=== PATIENT | female | born 1970 | race Caucasian/White ===

== ENCOUNTER 2017-02-05 21:04 | Inpatient (IN) | payer OTHER ==
[2017-02-05] MEDS ORDERED: Aspirin Low Dose CHEW TAB* 81 MG PO ONE (22:11)
[2017-02-05] MEDS ORDERED: Pantoprazole IV* 40 MG IV ONE (22:12)
[2017-02-05] MEDS ORDERED: Sucralfate TAB* 1 GM PO ONE (22:12)
[2017-02-05 22:33] LABS: Hematocrit 18 % (35-47); Mean Corpuscular HGB Conc 29 g/dl (31-36); Mean Corpuscular Hemoglobin 16 pg (27-31); Mean Corpuscular Volume 54 fL (80-97); Mean Platelet Volume 8 um3 (7.4-10.4); Red Blood Count 3.37 10^6/ul (4.0-5.4); Red Cell Distribution Width 21 % (10.5-15); White Blood Count 10.4 10^3/ul (3.5-10.8)
[2017-02-05 22:34] LABS: Comments Flag Yes
[2017-02-05 22:41] LABS: Hemoglobin 5.3 g/dl (12.0-16.0)
[2017-02-05 22:50] LABS: ALT 8 U/L (7-52); AST 11 U/L (13-39); Albumin 4.2 g/dL (3.2-5.2); Alkaline Phosphatase 33 U/L (34-104); Anion Gap 8 mmol/L (2-11); BUN/Creatinine Ratio 17.7 (8-20); Blood Urea Nitrogen 14 mg/dL (6-24); CO2 Carbon Dioxide 23 mmol/L (22-32); Calcium 9.4 mg/dL (8.6-10.3); Chloride 104 mmol/L (101-111); EGFR African American 99.9 (>60); EGFR Non-African American 77.7 (>60); Globulin 2.8 g/dL (2-4); Glucose 102 mg/dL (70-100); Potassium 3.9 mmol/L (3.5-5.0); Sodium 135 mmol/L (133-145)
[2017-02-05 22:52] LABS: Add Diff/Slide Review? Manual Diff Added
[2017-02-05 23:06] LABS: Microcytosis 3+; Neutrophil % 83 % (38-83)
[2017-02-05 23:07] LABS: Add Path Review? YES; Hypochromasia 1+; Target Cells 1+
--- NOTE | 2017-02-06 00:12 | ED ---
Indu Whitman Emily, scribed for Ezequiel Suarez MD on 02/05/17 at 2217 . HPI Chest Pain - HPI Summary HPI Summary: This patient is a 47 year old F presenting to [facility] with a chief complaint of mid sternal CP that began at 1600. Pt reports pain starting while she was resting and sitting down. The patient rates the pain 8/10 in severity. Symptoms aggravated by deep breaths and burping. Symptoms alleviated by nothing. Patient denies feeling unable to catch her breath. Symptoms not aggravated my movement or palpation. PMHx includes GERD. Pt denies having similar CP due to GERD. - History of Current Complaint Chief Complaint: EDChestPainROMI Time Seen by Provider: 02/05/17 22:02 Hx Obtained From: Patient Onset/Duration: Started Hours Ago Timing: Constant, Lasting Hours Initial Severity: Severe Current Severity: Severe Pain Intensity: 8 Pain Scale Used: 0-10 Numeric Chest Pain Location: Discrete at:, Mid Sternal Aggravating Factor(s): Other: - Deep breaths and burping Alleviating Factor(s): Nothing - Allergy/Home Medications Allergies/Adverse Reactions: Allergies Allergy/AdvReac Type Severity Reaction Status Date / Time Penicillins Allergy Hives Verified 02/05/17 21:08 Home Medications: Home Medications Omeprazole 40 mg PO DAILY 02/05/17 [History Confirmed 02/05/17] PMH/Surg Hx/FS Hx/Imm Hx Previously Healthy: Yes GI History: Reports: Hx Gastroesophageal Reflux Disease Opthamlomology History: Denies: Hx Legally Blind EENT History: Denies: Hx Deafness Infectious Disease History: No Infectious Disease History: Denies: Traveled Outside the [place] in Last 30 Days - Family History Known Family History: Negative: Cardiac Disease, Diabetes - Social History Lives: Alone Substance Use Type: Reports: Marijuana Hx Tobacco Use: Yes Smoking Status (MU): Former Smoker Review of Systems Negative: Fever Positive: Chest Pain All Other Systems Reviewed And Are Negative: Yes Physical Exam Triage Information Reviewed: Yes Vital Signs On Initial Exam: Initial Vitals Temp Pulse Resp BP Pulse Ox 99.2 F 96 14 150/79 99 02/05/17 21:05 02/05/17 21:05 02/05/17 21:05 02/05/17 21:05 02/05/17 21:05 Vital Signs Reviewed: Yes Appearance: Positive: Well-Appearing, No Pain Distress Skin: Positive: Warm, Skin Color Reflects Adequate Perfusion, Dry Head/Face: Positive: Normal Head/Face Inspection Eyes: Positive: Normal ENT: Positive: Normal ENT inspection Neck: Positive: Supple, Nontender Respiratory/Lung Sounds: Positive: Clear to Auscultation, Breath Sounds Present Cardiovascular: Positive: RRR Abdomen Description: Positive: Nontender, Soft Bowel Sounds: Positive: Present Musculoskeletal: Positive: Normal Neurological: Positive: Normal Psychiatric: Positive: Affect/Mood Appropriate Diagnostics - Vital Signs Vital Signs Temp Pulse Resp BP Pulse Ox 02/05/17 21:05 99.2 F 96 14 150/79 99 - Laboratory Lab Results: Lab Results 02/05/17 02/05/17 02/05/17 Range/Units 22:23 22:23 22:23 WBC 10.4 (3.5-10.8) 10^3/ul RBC 3.37 L (4.0-5.4) 10^6/ul Hgb 5.3 L* (12.0-16.0) g/dl Hct 18 L (35-47) % MCV 54 L (80-97) fL MCH 16 L (27-31) pg MCHC 29 L (31-36) g/dl RDW 21 H (10.5-15) % Plt Count 596 H (150-450) 10^3/ul MPV 8 (7.4-10.4) um3 Neut % (Auto) Not Reportable Lymph % (Auto) Not Reportable Collin % (Auto) Not Reportable Eos % (Auto) Not Reportable Baso % (Auto) Not Reportable Absolute Neuts (auto) 8.62 H (1.5-7.7) 10^3/ul Absolute Lymphs (auto) 0.94 L (1.0-4.8) 10^3/ul Absolute Monos (auto) 0.83 H (0-0.8) 10^3/ul Absolute Eos (auto) 0 (0-0.6) 10^3/ul Absolute Basos (auto) 0 (0-0.2) 10^3/ul Absolute Nucleated RBC 0.01 10^3/ul Neutrophils % 83 (38-83) % Lymphocytes % 9 L (25-47) % Monocytes % 8 (0-13) % 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 RBC Morphology Not Reportable Hypochromasia 1+ Microcytosis 3+ Target Cells 1+ Hem Pathologist Commnt Pending D-Dimer, Quantitative 406 H (Less Than 230) ng/mL Sodium 135 (133-145) mmol/L Potassium 3.9 (3.5-5.0) mmol/L Chloride 104 (101-111) mmol/L Carbon Dioxide 23 (22-32) mmol/L Anion Gap 8 (2-11) mmol/L BUN 14 (6-24) mg/dL Creatinine 0.79 (0.51-0.95) mg/dL Est GFR ( Amer) 99.9 (>60) Est GFR (Non-Af Amer) 77.7 (>60) BUN/Creatinine Ratio 17.7 (8-20) Glucose 102 H (70-100) mg/dL Lactic Acid (0.5-2.0) mmol/L Calcium 9.4 (8.6-10.3) mg/dL Total Bilirubin 0.90 (0.2-1.0) mg/dL AST 11 L (13-39) U/L ALT 8 (7-52) U/L Alkaline Phosphatase 33 L (34-104) U/L Troponin I 0.00 (<0.04) ng/mL Total Protein 7.0 (6.4-8.9) g/dL Albumin 4.2 (3.2-5.2) g/dL Globulin 2.8 (2-4) g/dL Albumin/Globulin Ratio 1.5 (1-3) 02/05/ Range/Units 22:23 WBC (3.5-10.8) 10^3/ul RBC (4.0-5.4) 10^6/ul Hgb (12.0-16.0) g/dl Hct (35-47) % MCV (80-97) fL MCH (27-31) pg MCHC (31-36) g/dl RDW (10.5-15) % Plt Count (150-450) 10^3/ul MPV (7.4-10.4) um3 Neut % (Auto) Lymph % (Auto) Collin % (Auto) Eos % (Auto) Baso % (Auto) Absolute Neuts (auto) (1.5-7.7) 10^3/ul Absolute Lymphs (auto) (1.0-4.8) 10^3/ul Absolute Monos (auto) (0-0.8) 10^3/ul Absolute Eos (auto) (0-0.6) 10^3/ul Absolute Basos (auto) (0-0.2) 10^3/ul Absolute Nucleated RBC 10^3/ul Neutrophils % (38-83) % Lymphocytes % (25-47) % Monocytes % (0-13) % Nucleated RBC % Normal RBC Morphology Hypochromasia Microcytosis Target Cells Hem Pathologist Commnt D-Dimer, Quantitative (Less Than 230) ng/mL Sodium (133-145) mmol/L Potassium (3.5-5.0) mmol/L Chloride (101-111) mmol/L Carbon Dioxide (22-32) mmol/L Anion Gap (2-11) mmol/L BUN (6-24) mg/dL Creatinine (0.51-0.95) mg/dL Est GFR ( Amer) (>60) Est GFR (Non-Af Amer) (>60) BUN/Creatinine Ratio (8-20) Glucose (70-100) mg/dL Lactic Acid 0.7 (0.5-2.0) mmol/L Calcium (8.6-10.3) mg/dL Total Bilirubin (0.2-1.0) mg/dL AST (13-39) U/L ALT (7-52) U/L Alkaline Phosphatase (34-104) U/L Troponin I (<0.04) ng/mL Total Protein (6.4-8.9) g/dL Albumin (3.2-5.2) g/dL Globulin (2-4) g/dL Albumin/Globulin Ratio (1-3) Result Diagrams: 02/05/17 22:23 02/05/17 22:23 Lab Statement: Any lab studies that have been ordered have been reviewed, and results considered in the medical decision making process. - Radiology CXR Radiology Interpretation Completed By: ED Physician - CXR read by ED physician reveals no acute pathology. - EKG 2109 Cardiac Rate: NL - 91 BPM EKG Rhythm: Sinus Rhythm Chest Pain Course/Dx - Course Course Of Treatment: Ms. Ramirez presented with CP that started this evening. She takes prilosec for GERD symptoms and can't really distinguish this pain from the pain that she used to have prior to taking the prilosec. She was found to be quite anemic and Dr. Meier was contacted, he requested a CTA and she is waiting for that now. She is stable. - Diagnoses Provider Diagnoses: Severe anemia, Chest pain - Provider Notifications Discussed Care Of Patient With: Migel Flores Time Discussed With Above Provider: 23:41 Instructed by Provider To: Other - Consult with Dr. Flores (hospitalist) at 2341. He recommended a CT be taken. Discharge - Discharge Plan Condition: Stable Disposition: ADMITTED TO [facility] Referrals: No Primary Care Phys,NOPCP [Primary Care Provider] - The documentation as recorded by the Indu nicholas Emily accurately reflects the service I personally performed and the decisions made by me, Ezequiel Suarez MD.
[2017-02-06] MEDS ORDERED: Iohexol 350* (CONTRAST) 500 ML MDV IV ONE (00:29)
[2017-02-06] MEDS ORDERED: Acetaminophen TAB* 325 MG PO PRN (01:58)
[2017-02-06] MEDS ORDERED: Albuterol 2.5 MG/3 ML NEB.SOL* (0.083%) INH PRN (01:58)
[2017-02-06] MEDS ORDERED: CMCS: Melatonin (NF) 3 MG TAB PO PRN (01:58)
[2017-02-06] MEDS ORDERED: Ondansetron INJ* 2 MG/ML VIAL IV PRN (01:58)
--- NOTE | 2017-02-06 02:15 | HP ---
H&P (Free Text) History and Physical: PCP: none Date/Time: 02/06/2017 0145 CC: chest pain HPI: Mrs Ramirez is a 47YO female HX GERD presenting for sudden onset non- exertional, non-radiating sharpish substernal chest pain that came on while drinking like she had 'swallowed wrong'. There was no associated SOB, palpitations, N/V, sweating, or light-headedness. She does report exertional SOB for the past 6months, a syncopal episode getting out of the shower a month ago, and 2 weeks of progressive generalized fatigue. She denies chronic NSAID/ aspirin use, black/bloody stools, and heavy menses. Menses last ~ 5days and are characterized by severe cramps. Menses were heavy up until the last 6months or so when they began to lighten. She admits to drinking about 6beers weekly. She has not yet had a screening colonoscopy. PMedHx GERD with esophageal scarring Ambulatory Orders Omeprazole 40 mg PO DAILY 02/05/17 Allergies Penicillins Allergy (Verified 02/05/17 21:08) Hives PSurgHx B tubal ligation SocHx: former smoker, former heavy drinker decreased to ~6beers weekly ~1year ago, occasional marijuana but denies other recreational drugs; single, lives with her boyfriend; unemployed; full code status FamHx: Mother passed of pancreatic CA in her 70s. Father is alive in his 70s with COPD/emphysema and prostate CA. She has one brother and one sister who are healthy. ROS: as above, otherwise reviewed and all were negative vitals: Vital Signs Temp 37.3 C 02/05/17 21:05 Pulse 86 02/06/17 01:00 Resp 17 02/06/17 01:00 BP 127/76 02/06/17 01:00 Pulse Ox 98 02/06/17 01:00 Intake & Output 02/05/17 02/05/17 02/06/17 11:59 23:59 11:59 Weight 63.503 kg Constitutional: NAD, normally developed, well-nourished white female HEENM: atraumatic; sclera/conjunctiva: non-icteric/clear; hearing: clinically intact; oropharynx: clear, mucosa moist Neck: soft tissue: non-tender; thyroid: normal Pulmonary: clear to auscultation bilaterally, good aeration, no accessory muscle use CV: RR/RR, normal S1S2, no carotid bruit, no jugular venous distention, 2+ B DP/ PT, no edema Abdominal: soft, non-distended, non-tender, no rebound/guarding/rigidity, normoactive bowel sounds, no hepatosplenomegaly or masses, no costovertebral angle tenderness Musculoskeletal: general: grossly intact; gait: stable Integumental: normal appearance and texture, surprisingly no pallor Psychiatric orientation: AA&O to PPS affect: calm mood: cooperative eye contact: good content: reliable responses: timely insight: fair Testing: Lab Results 02/05/17 02/05/17 02/05/17 Range/Units 22:23 22:23 22:23 WBC 10.4 (3.5-10.8) 10^3/ul RBC 3.37 L (4.0-5.4) 10^6/ul RBC (Retic) Pending Hgb 5.3 L* (12.0-16.0) g/dl Hct 18 L (35-47) % HCT (Retic) Pending MCV 54 L (80-97) fL MCH 16 L (27-31) pg MCHC 29 L (31-36) g/dl RDW 21 H (10.5-15) % Plt Count 596 H (150-450) 10^3/ul MPV 8 (7.4-10.4) um3 Neut % (Auto) Not Reportable Lymph % (Auto) Not Reportable Ogle % (Auto) Not Reportable Eos % (Auto) Not Reportable Baso % (Auto) Not Reportable Absolute Neuts (auto) 8.62 H (1.5-7.7) 10^3/ul Absolute Lymphs (auto) 0.94 L (1.0-4.8) 10^3/ul Absolute Monos (auto) 0.83 H (0-0.8) 10^3/ul Absolute Eos (auto) 0 (0-0.6) 10^3/ul Absolute Basos (auto) 0 (0-0.2) 10^3/ul Absolute Nucleated RBC 0.01 10^3/ul Neutrophils % 83 (38-83) % Lymphocytes % 9 L (25-47) % Monocytes % 8 (0-13) % 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 RBC Morphology Not Reportable Hypochromasia 1+ Microcytosis 3+ Target Cells 1+ Retic Count, Calc Pending Corrected Retic Count Pending Retic Shift Factor Pending Retic Production Index Pending Immature Retic Fraction Pending Mean Retic Volume Pending Hem Pathologist Commnt Pending D-Dimer, Quantitative 406 H (Less Than 230) ng/mL Sodium 135 (133-145) mmol/L Potassium 3.9 (3.5-5.0) mmol/L Chloride 104 (101-111) mmol/L Carbon Dioxide 23 (22-32) mmol/L Anion Gap 8 (2-11) mmol/L BUN 14 (6-24) mg/dL Creatinine 0.79 (0.51-0.95) mg/dL Est GFR ( Amer) 99.9 (>60) Est GFR (Non-Af Amer) 77.7 (>60) BUN/Creatinine Ratio 17.7 (8-20) Glucose 102 H (70-100) mg/dL Lactic Acid (0.5-2.0) mmol/L Calcium 9.4 (8.6-10.3) mg/dL Iron Pending TIBC Pending % Saturation Pending Unsat Iron Binding Pending Ferritin Pending Total Bilirubin 0.90 (0.2-1.0) mg/dL AST 11 L (13-39) U/L ALT 8 (7-52) U/L Alkaline Phosphatase 33 L (34-104) U/L Lactate Dehydrogenase Pending Troponin I 0.00 (<0.04) ng/mL Total Protein 7.0 (6.4-8.9) g/dL Albumin 4.2 (3.2-5.2) g/dL Globulin 2.8 (2-4) g/dL Albumin/Globulin Ratio 1.5 (1-3) Vitamin B12 Pending Folate Pending Blood Type Antibody Screen Crossmatch 02/05/17 02/05/17 02/06/17 Range/Units 22:23 22: 01:19 WBC (3.5-10.8) 10^3/ul RBC (4.0-5.4) 10^6/ul RBC (Retic) Hgb (12.0-16.0) g/dl Hct (35-47) % HCT (Retic) MCV (80-97) fL MCH (27-31) pg MCHC (31-36) g/dl RDW (10.5-15) % Plt Count (150-450) 10^3/ul MPV (7.4-10.4) um3 Neut % (Auto) Lymph % (Auto) Ogle % (Auto) Eos % (Auto) Baso % (Auto) Absolute Neuts (auto) (1.5-7.7) 10^3/ul Absolute Lymphs (auto) (1.0-4.8) 10^3/ul Absolute Monos (auto) (0-0.8) 10^3/ul Absolute Eos (auto) (0-0.6) 10^3/ul Absolute Basos (auto) (0-0.2) 10^3/ul Absolute Nucleated RBC 10^3/ul Neutrophils % (38-83) % Lymphocytes % (25-47) % Monocytes % (0-13) % Nucleated RBC % Normal RBC Morphology Hypochromasia Microcytosis Target Cells Retic Count, Calc Corrected Retic Count Retic Shift Factor Retic Production Index Immature Retic Fraction Mean Retic Volume Hem Pathologist Commnt D-Dimer, Quantitative (Less Than 230) ng/mL Sodium (133-145) mmol/L Potassium (3.5-5.0) mmol/L Chloride (101-111) mmol/L Carbon Dioxide (22-32) mmol/L Anion Gap (2-11) mmol/L BUN (6-24) mg/dL Creatinine (0.51-0.95) mg/dL Est GFR ( Amer) (>60) Est GFR (Non-Af Amer) (>60) BUN/Creatinine Ratio (8-20) Glucose (70-100) mg/dL Lactic Acid 0.7 (0.5-2.0) mmol/L Calcium (8.6-10.3) mg/dL Iron TIBC % Saturation Unsat Iron Binding Ferritin Total Bilirubin (0.2-1.0) mg/dL AST (13-39) U/L ALT (7-52) U/L Alkaline Phosphatase (34-104) U/L Lactate Dehydrogenase Troponin I 0.00 (<0.04) ng/mL Total Protein (6.4-8.9) g/dL Albumin (3.2-5.2) g/dL Globulin (2-4) g/dL Albumin/Globulin Ratio (1-3) Vitamin B12 Folate Blood Type O Positive Antibody Screen Negative Crossmatch See Detail ECG, personally reviewed: NSR rate 91, no ischemia CXR, personally reviewed: no acute process CTA chest/abd/pel, personally reviewed: FINDINGS: Chest: Negative for thoracic aortic aneurysm or dissection. Negative for pulmonary embolus. Lungs are clear of acute disease. Abdomen and pelvis: Negative for abdominal aortic aneurysm or dissection. No bowel obstruction, free air, or free fluid. Negative for diverticulitis or colitis. Negative for appendicitis. Normal kidneys. No renal or ureteral obstruction. Enlarged bulky uterus possibly due to fibroids. The enlarged uterus exerts mass effect on the urinary bladder. Impression: 47F presenting with chest pain for r/o ACS with incidental finding of severe chronic iron deficiency anemia DIAGNOSIS & PLAN Primary chest pain r/o ACS : telemetry : aspirin 324mg given in ED : hold beta bettina due to severity of anemia & low suspicious of ACS : trend troponin & ECG : supplemental oxygen : supportive care severe iron deficiency anemia : given pantoprazole 40mg IV x1 in ED : type & screen : give 2units pRBCs tonight : trend H&H : stool for occult blood : supplemental oxygen : consider GI consultation in AM enlarged uterus, suspect fibroids ? etiology of anemia : transvaginal US in AM : consider SUPERVISOR TYPE DISK QUALITY CONTROL consultation in AM for further evaluation Secondary GERD : continue omeprazole marijuana use : cessation recommended, low motivation Admission Rational: inpatient for severe anemia ? etiology DVTp: SCDs, no anticoagulation due to severity of anemia Code Status: full
[2017-02-06 02:20] LABS: Total Iron Binding Capacity 542 mcg/dL (250-450); Transferrin 387 mg/dL (203-362)
[2017-02-06 02:26] LABS: Iron < 15 ug/dL (50-212)
[2017-02-06 02:40] LABS: Ferritin < 10.0 ng/mL (11-307); Maturation Factor Retic 2.5
[2017-02-06 02:44] LABS: Folate 17.16 ng/mL (>3.99)
[2017-02-06 02:45] LABS: Vitamin B12 232 pg/mL (180-914)
[2017-02-06 03:04] LABS: Corrected Retic Count 0.6 % (0.5-1.5); Immature Retic Fraction 0.45
--- NOTE | 2017-02-06 08:17 | RAD ---
Indication: Chest pain. 2 views of the chest including dual energy PA views are reviewed. No prior study is available for comparison. The lung fraga demonstrate no pleural fluid, pneumonia or pneumothorax. IMPRESSION: No active cardiopulmonary disease is noted.
--- NOTE | 2017-02-06 08:29 | RAD ---
Indication: Chest pain, evaluate for aortic dissection. Contrast: Administered 100.3 ml of OMNIPAQUE 350 mg/ml CTA of the chest, abdomen and pelvis was performed after IV contrast administration. Coronal and sagittal reconstructed images were obtained. The a.c. ascending aorta, aortic arch and descending aorta demonstrates no evidence of aortic dissection. No aneurysmal dilatation is noted. The common iliac arteries and external iliac arteries are The pulmonary arterial tree demonstrates some contrast within it however no definite filling defects to suggest pulmonary embolus is noted. No mediastinal or hilar adenopathy is noted. The heart demonstrates no pericardial effusion. The trachea and major bronchi appear patent. No pleural fluid is identified. CT of the abdomen demonstrates no focal lesions or intrahepatic ductal dilatation in the liver. Pancreas demonstrates no mass or pancreatic ductal dilatation. The common duct is not dilated. The gallbladder demonstrates no calcified gallstones. The spleen is normal in size. No adrenal lesions are noted. The kidneys demonstrate symmetric nephrograms without focal lesions. No retroperitoneal lymphadenopathy is noted. No dilated loops of bowel are noted. CT of the pelvis demonstrates enlarged uterus. This is causing extrinsic compression upon the urinary bladder. Myomatous changes should be considered. No adnexal masses are noted. No free fluid is identified. IMPRESSION: No evidence of aortic dissection is noted. No definite pulmonary embolus is noted. Enlarged uterus causing extrinsic compression of the urinary bladder likely due to myomatous changes.
[2017-02-06 09:45] LABS: Hematocrit 23 % (35-47); Hemoglobin 6.7 g/dl (12.0-16.0); Mean Corpuscular HGB Conc 29 g/dl (31-36); Mean Corpuscular Hemoglobin 17 pg (27-31); Mean Platelet Volume 8 um3 (7.4-10.4); Red Blood Count 4.07 10^6/ul (4.0-5.4); Red Cell Distribution Width 24 % (10.5-15); White Blood Count 8.7 10^3/ul (3.5-10.8)
[2017-02-06 09:50] LABS: Comments Flag Yes
[2017-02-06 09:51] LABS: Mean Corpuscular Volume 57 fL (80-97)
--- NOTE | 2017-02-06 09:58 | RAD ---
Indication: Enlarged uterus. Real-time sonography of the pelvis was performed. The uterus measures 17.6 x 8.9 x 9.4 cm. Diffuse myomatous changes of the uterus are noted. Endometrial echo measures 6 mm. The right ovary measures 2.4 x 1.5 x 2.4 cm. Left ovary measures 3.0 x 2.5 x 2.6 cm. IMPRESSION: Likely diffuse myomatous changes of the uterus with the uterus measuring up to 17.6 x 8.9 x 19.4 cm.
--- NOTE | 2017-02-06 10:51 | PN ---
Subjective Date of Service: 02/06/17 Interval History: This is a 47 yo female who presented to the ED with concern for chest pain and shortness of breath that started yesterday. She was found to have significant anemia and microcytic changes consistent with severe iron deficiency. She is visiting; she is from [place]. Her PCP is with [facility] (does not remember name); she denies any recently known history of anemia or any lab work. She states she was on iron supplementation as a teenager for anemia. She was due to have labs drawn but hasn't had that done yet. She denies any s/s of bleeding and hasn't noted any rectal bleeding. She does endorse a history of GERD with esophageal scarring (seen on XR, ? endoscopy) and was started on omeprazole by a case liner she was referred to by her primary (doesn't remember name of GI - possibly Dr Christianson of [facility]). She was offered a dilatation of the esophagus secondary to dysphagia but declined. She has never had a colonoscopy. Ms. Ramirez reports some heavy menstrual cycles that possibly started around 3 years ago; however, they have improved and lightened in the recent months. She still endorses "terrible cramping" with each menstrual cycle. She denies any recent heavy bleeding and the bleeding ends with her cycles. She last saw a home theater specialist around 1997. Her LMP was last week and was "pretty normal" except for the bad cramping. Patient endorses a history of heavy alcohol for "quite some time" where she would drink up to 6 beers a day. However, since she started having the reflux and dysphagia, she stopped drinking so heavily and reports that she maybe has 1- 2 beers 2 to 3 times a week. The chest pain has improved; she states it hurts when she takes a deep breath and sometimes when she swallows. It is not reproducible but did improve after first unit of blood. SOB also improved after transfusion. Denies abdominal pain , fever/chills, other symptoms of concern. Telemetry: SR 80s Family History: Unchanged from Admission Social History: Unchanged from Admission Past Medical History: Unchanged from Admission Objective Active Medications: Acetaminophen (Tylenol Tab*) 650 mg PO Q6H PRN PRN Reason: FEVER/PAIN Albuterol (Ventolin 2.5 Mg/3 Ml Neb.Yue*) 2.5 mg INH Q2H PRN PRN Reason: SOB/WHEEZING Docusate Sodium (Colace Cap*) 200 mg PO BID DEVON Sodium Chloride (Ns 0.9% 1000 Ml*) 1,000 mls @ 150 mls/hr IV PER RATE DEVON Melatonin (Melatonin (Nf)) 3 mg PO BEDTIME PRN; Protocol PRN Reason: Sleep Ondansetron HCl (Zofran Inj*) 4 mg IV Q6H PRN PRN Reason: NAUSEA Vital Signs 02/06/17 02/06/17 02/06/17 02:00 02:30 03:16 Temperature 98.9 F Pulse Rate 89 88 99 Respiratory 15 17 16 Rate Blood Pressure 127/75 125/70 137/75 (mmHg) O2 Sat by Pulse 97 96 99 Oximetry 02/06/17 02/06/17 02/06/17 03:43 05:24 05:42 Temperature 99.6 F 98.6 F 99.1 F Pulse Rate 88 88 Respiratory 16 16 Rate Blood Pressure 115/56 115/60 (mmHg) O2 Sat by Pulse 98 99 Oximetry 02/06/17 02/06/17 02/06/17 08:04 08:16 08:17 Temperature 99.0 F 98.8 F Pulse Rate 82 79 99 Respiratory 16 16 Rate Blood Pressure 125/69 126/65 (mmHg) O2 Sat by Pulse 97 99 Oximetry Appearance: Pleasant female patient, pale, lying in bed, in NAD Eyes: No Scleral Icterus Ears/Nose/Mouth/Throat: Mucous Membranes Moist Neck: NL Appearance and Movements; NL JVP Respiratory: Symmetrical Chest Expansion and Respiratory Effort, Clear to Auscultation Cardiovascular: NL Sounds; No Murmurs; No JVD, RRR Abdominal: NL Sounds; No Tenderness; No Distention Extremities: No Edema Neurological: Alert and Oriented x 3, NL Muscle Strength and Tone Lines/Tubes/Other Access: Clean, Dry and Intact Peripheral IV Nutrition: Taking PO's Result Diagrams: 02/06/17 16:46 02/05/17 22:23 Additional Lab and Data: Lab Results 02/05/17 02/05/17 02/05/17 Range/Units 22:23 22:23 22:23 WBC 10.4 (3.5-10.8) 10^3/ul RBC 3.37 L (4.0-5.4) 10^6/ul Hgb 5.3 L* (12.0-16.0) g/dl Hct 18 L (35-47) % MCV 54 L (80-97) fL MCH 16 L (27-31) pg MCHC 29 L (31-36) g/dl RDW 21 H (10.5-15) % Plt Count 596 H (150-450) 10^3/ul MPV 8 (7.4-10.4) um3 Neut % (Auto) Not Reportable Lymph % (Auto) Not Reportable Pleasants % (Auto) Not Reportable Eos % (Auto) Not Reportable Baso % (Auto) Not Reportable Absolute Neuts (auto) 8.62 H (1.5-7.7) 10^3/ul Absolute Lymphs (auto) 0.94 L (1.0-4.8) 10^3/ul Absolute Monos (auto) 0.83 H (0-0.8) 10^3/ul Absolute Eos (auto) 0 (0-0.6) 10^3/ul Absolute Basos (auto) 0 (0-0.2) 10^3/ul Absolute Nucleated RBC 0.01 10^3/ul Neutrophils % 83 (38-83) % Lymphocytes % 9 L (25-47) % Monocytes % 8 (0-13) % Nucleated RBC % Binder Operator Normal RBC Morphology Not Reportable Hypochromasia 1+ Microcytosis 3+ Target Cells 1+ Hem Pathologist Commnt Pending D-Dimer, Quantitative 406 H (Less Than 230) ng/mL Sodium 135 (133-145) mmol/L Potassium 3.9 (3.5-5.0) mmol/L Chloride 104 (101-111) mmol/L Carbon Dioxide 23 (22-32) mmol/L Anion Gap 8 (2-11) mmol/L BUN 14 (6-24) mg/dL Creatinine 0.79 (0.51-0.95) mg/dL Est GFR ( Amer) 99.9 (>60) Est GFR (Non-Af Amer) 77.7 (>60) BUN/Creatinine Ratio 17.7 (8-20) Glucose 102 H (70-100) mg/dL Lactic Acid (0.5-2.0) mmol/L Calcium 9.4 (8.6-10.3) mg/dL Total Bilirubin 0.90 (0.2-1.0) mg/dL AST 11 L (13-39) U/L ALT 8 (7-52) U/L Alkaline Phosphatase 33 L (34-104) U/L Troponin I 0.00 (<0.04) ng/mL Total Protein 7.0 (6.4-8.9) g/dL Albumin 4.2 (3.2-5.2) g/dL Globulin 2.8 (2-4) g/dL Albumin/Globulin Ratio 1.5 (1-3) 02/05/ Range/Units 22:23 WBC (3.5-10.8) 10^3/ul RBC (4.0-5.4) 10^6/ul Hgb (12.0-16.0) g/dl Hct (35-47) % MCV (80-97) fL MCH (27-31) pg MCHC (31-36) g/dl RDW (10.5-15) % Plt Count (150-450) 10^3/ul MPV (7.4-10.4) um3 Neut % (Auto) Lymph % (Auto) Pleasants % (Auto) Eos % (Auto) Baso % (Auto) Absolute Neuts (auto) (1.5-7.7) 10^3/ul Absolute Lymphs (auto) (1.0-4.8) 10^3/ul Absolute Monos (auto) (0-0.8) 10^3/ul Absolute Eos (auto) (0-0.6) 10^3/ul Absolute Basos (auto) (0-0.2) 10^3/ul Absolute Nucleated RBC 10^3/ul Neutrophils % (38-83) % Lymphocytes % (25-47) % Monocytes % (0-13) % Nucleated RBC % Normal RBC Morphology Hypochromasia Microcytosis Target Cells Hem Pathologist Commnt D-Dimer, Quantitative (Less Than 230) ng/mL Sodium (133-145) mmol/L Potassium (3.5-5.0) mmol/L Chloride (101-111) mmol/L Carbon Dioxide (22-32) mmol/L Anion Gap (2-11) mmol/L BUN (6-24) mg/dL Creatinine (0.51-0.95) mg/dL Est GFR ( Amer) (>60) Est GFR (Non-Af Amer) (>60) BUN/Creatinine Ratio (8-20) Glucose (70-100) mg/dL Lactic Acid 0.7 (0.5-2.0) mmol/L Calcium (8.6-10.3) mg/dL Total Bilirubin (0.2-1.0) mg/dL AST (13-39) U/L ALT (7-52) U/L Alkaline Phosphatase (34-104) U/L Troponin I (<0.04) ng/mL Total Protein (6.4-8.9) g/dL Albumin (3.2-5.2) g/dL Globulin (2-4) g/dL Albumin/Globulin Ratio (1-3) Assess/Plan/Problems-Billing Assessment: Ms. Ramirez is a 47 yo female with a PMH significant for GERD with esophageal scarring and ETOH abuse who presented on 02/06 with concern for chest pain and was found to have chronic iron deficiency anemia. - Patient Problems (1) Chest pain Code(s): R07.9 - CHEST PAIN, UNSPECIFIED Comment: Improved following PRBC transfusion CTA negative for PE, Trop unremarkable Suspect noncardiac causes, given pain is provoked with inspiration and with swallowing Could consider outpatient stress to complete evaluation. (2) Anemia Code(s): D64.9 - ANEMIA, UNSPECIFIED Comment: With severe iron deficiency Etiology may include possibly uterine fibroids vs GI causes Appreciate gastroenterology consult Plan to obtain notes from PCP and previous GI consult to try to establish baseline Continue to follow HH Patient is receiving 2nd unit PRBC transfusion (3) GERD (gastroesophageal reflux disease) Code(s): K21.9 - GASTRO-ESOPHAGEAL REFLUX DISEASE WITHOUT ESOPHAGITIS Comment : Patient is a poor historian, reports seeing GI but doesn't remember the name Continue omeprazole Appreciate GI consult here, given significant anemia Obtain records from gastroenterology (4) Uterine myoma Code(s): D25.9 - LEIOMYOMA OF UTERUS, UNSPECIFIED Comment: Pelvic US shows diffuse myomatous changes Patient will need outpatient gynecological follow-up Denies any profuse bleeding, LMP last week with normal menses Does report significant cramping with menstrual cycle (5) DVT prophylaxis Comment: Anticoagulation contraindicated in acute bleeding and severe anemia BRIAN bryant Status and Disposition: Inpatient admit. Anticipate >2 day LOS for hemodynamic stabilization.
[2017-02-06] MEDS: Docusate CAP* 100 MG PO SCH ×2 (10:52→21:40)
[2017-02-06 16:56] LABS: Hematocrit 23 % (35-47)
[2017-02-06 17:12] LABS: Comments Flag Yes
[2017-02-06 17:14] LABS: Hemoglobin 6.9 g/dl (12.0-16.0)
[2017-02-06] MEDS: NS 0.9% 1000 ML* 1,000 ML IV SCH (17:45)
[2017-02-06] MEDS: Ferrous Sulfate TAB* 325 MG PO SCH (21:40)
[2017-02-06 23:28] LABS: Hematocrit 23 % (35-47); Hemoglobin 6.8 g/dl (12.0-16.0)
[2017-02-06 23:31] LABS: Comments Flag Yes
[2017-02-07] MEDS: NS 0.9% 1000 ML* 1,000 ML IV SCH (03:14)
[2017-02-07 06:19] LABS: Hematocrit 23 % (35-47); Hemoglobin 6.7 g/dl (12.0-16.0); Mean Corpuscular HGB Conc 29 g/dl (31-36); Mean Corpuscular Hemoglobin 18 pg (27-31); Mean Corpuscular Volume 60 fL (80-97); Mean Platelet Volume 9 um3 (7.4-10.4); Red Blood Count 3.79 10^6/ul (4.0-5.4); Red Cell Distribution Width 27 % (10.5-15); White Blood Count 6.1 10^3/ul (3.5-10.8)
[2017-02-07 06:32] LABS: Comments Flag Yes
[2017-02-07 06:34] LABS: Add Diff/Slide Review? Manual Diff Added
[2017-02-07 06:57] LABS: Eosinophils % 3 % (0-6); Neutrophil % 65 % (38-83); Reactive Lymph % 1 % (0-6)
[2017-02-07 06:58] LABS: Hypochromasia 3+; Microcytosis 3+
[2017-02-07 06:59] LABS: Stomatocytes 1+; Target Cells 1+
[2017-02-07] MEDS ORDERED: Influenza VAC *QUAD* 2017-18* 0.5 ML SYRINGE IM ONE (09:00)
[2017-02-07] MEDS: Ferrous Sulfate TAB* 325 MG PO SCH (09:12)
[2017-02-07] MEDS: Docusate CAP* 100 MG PO SCH (09:13)
--- NOTE | 2017-02-07 14:46 | PN ---
Subjective Date of Service: 02/07/17 Interval History: Patient seen and examined at bedside. Pt states that she is feeling well and would like to go home. Denies fever, chills, dizziness, shortness of breath, chest discomfort, N/V/D. Pt denies dark, bloody, black or tarry stools. Pt reports that for many years she has had heavy menses and they last for 5 to 7 days. Pt states that over the last 6 months her periods have started to lighten up, but are still heavy in the first 2-3 days. Pt reports occasional intermittent chest discomfort located at the left sternal border. Pt states that she is unaware of anything that causes it or makes it better. Tele: Sinus rhythm, rate 70's. Family History: Unchanged from Admission Social History: Unchanged from Admission Past Medical History: Unchanged from Admission Objective Active Medications: Acetaminophen (Tylenol Tab*) 650 mg PO Q6H PRN Reason: FEVER/PAIN Albuterol (Ventolin 2.5 Mg/3 Ml Neb.Yue*) 2.5 mg INH Q2H PRN Reason: SOB/ WHEEZING Docusate Sodium (Colace Cap*) 200 mg PO BID DEVON Ferrous Sulfate (Ferrous Sulfate Tab*) 325 mg PO BID DEVON Sodium Chloride (Ns 0.9% 1000 Ml*) 1,000 mls @ 150 mls/hr IV PER RATE DEVON Melatonin (Melatonin (Nf)) 3 mg PO BEDTIME PRN; Protocol Reason: Sleep Ondansetron HCl (Zofran Inj*) 4 mg IV Q6H PRN Reason: NAUSEA Vital Signs 02/06/17 02/06/17 02/06/17 16:41 18:26 19:51 Temperature 98.6 F 98.3 F Pulse Rate 79 83 Respiratory 18 16 Rate Blood Pressure 127/71 131/74 (mmHg) O2 Sat by Pulse 97 97 99 Oximetry 02/06/17 02/06/17 02/07/17 20:00 23:43 04:11 Temperature 98.6 F 97.6 F Pulse Rate 79 74 Respiratory 20 20 20 Rate Blood Pressure 120/74 114/61 (mmHg) O2 Sat by Pulse 98 100 Oximetry 02/07/17 02/07/17 02/07/17 04:39 07:49 08:00 Temperature 98.6 F Pulse Rate 80 76 Respiratory 20 16 16 Rate Blood Pressure 112/96 (mmHg) O2 Sat by Pulse 98 98 Oximetry 02/07/17 11:05 Temperature 98.2 F Pulse Rate 78 Respiratory 16 Rate Blood Pressure 118/64 (mmHg) O2 Sat by Pulse 98 Oximetry Oxygen Devices in Use Now: None Appearance: NAD, laying in bed Ears/Nose/Mouth/Throat: Mucous Membranes Moist Respiratory: Symmetrical Chest Expansion and Respiratory Effort, Clear to Auscultation Cardiovascular: NL Sounds; No Murmurs; No JVD, RRR Abdominal: NL Sounds; No Tenderness; No Distention Extremities: No Edema Skin: No Rash or Ulcers Neurological: Alert and Oriented x 3, NL Muscle Strength and Tone Lines/Tubes/Other Access: Clean, Dry and Intact Peripheral IV - x 2, site benign Nutrition: Taking PO's Result Diagrams: 02/07/17 05:17 02/05/17 22:23 Assess/Plan/Problems-Billing Assessment: Ms. Ramirez is a 47 yo female with a PMH significant for GERD with esophageal scarring and ETOH abuse who presented on 02/06 with concern for chest pain and was found to have chronic iron deficiency anemia. - Patient Problems (1) Anemia Code(s): D64.9 - ANEMIA, UNSPECIFIED SNOMED Code(s): 530597504 Comment: - With severe iron deficiency and B12 deficiency - Etiology may include possibly uterine fibroids vs GI causes - Appreciate gastroenterology consult, Pt will need outpatient EGD and colonoscopy - Plan to obtain notes from PCP and previous GI consult to try to establish baseline - PT has received 2 units of RBCs on this admission - HH stable, plan to transfuse another unit of RBC's today (2) Chest pain Code(s): R07.9 - CHEST PAIN, UNSPECIFIED SNOMED Code(s): 63137303 Comment: - Improved following PRBC transfusion - CTA negative for PE, Trop unremarkable - Suspect noncardiac causes, given pain is provoked with inspiration and with swallowing - Could consider outpatient stress to complete evaluation. (3) Uterine myoma Code(s): D25.9 - LEIOMYOMA OF UTERUS, UNSPECIFIED SNOMED Code(s): 29947033 Comment: - Pelvic US shows diffuse myomatous changes - Patient will need outpatient gynecological follow-up - Denies any profuse bleeding, LMP last week with normal menses (Pt reports baseline heavy menses lasting 5-7 days) - Does report significant cramping with menstrual cycle (4) GERD (gastroesophageal reflux disease) Code(s): K21.9 - GASTRO-ESOPHAGEAL REFLUX DISEASE WITHOUT ESOPHAGITIS SNOMED Code(s): 979977354 Comment: - Patient is a poor historian, reports seeing GI but doesn't remember the name - Continue omeprazole - Appreciate GI consult here, given significant anemia - Obtain records from gastroenterology (5) DVT prophylaxis Code(s): HIK3189 - SNOMED Code(s): 083861460 Comment: - Chemical anticoagulation contraindicated in setting of acute bleeding and severe anemia - BRIAN hurtado (6) Full code status Code(s): Z78.9 - OTHER SPECIFIED HEALTH STATUS SNOMED Code(s): 014026071 Status and Disposition: Inpatient admit. Stable for discharge to home after another unit of RBCs.
[2017-02-07 18:24] VITALS: BP 130/75
--- NOTE | 2017-02-08 11:07 | CONS ---
CONSULTATION REPORT: DATE OF CONSULT: 02/07/17 REQUESTING PHYSICIAN: Jessenia Cartwright NP. NARRATIVE: Ms. Ramirez is a 47-year-old female who came in with chest pain. She was found to be very anemic in the emergency room. She does have some shortness of breath. She denies any black and tarry stools. No bright red blood per rectum. She states that she does have occasional GERD. She does have a channel lip wetter back home, she is down here visiting right now. She states that she had an esophageal barium x-ray which showed esophageal scarring. Never had a colonoscopy. She denies any blood per rectum or again black and tarry stools. She does drink alcohol. PAST MEDICAL HISTORY: Significant for GERD. PAST SURGICAL HISTORY: Include tubal ligation. MEDICATIONS: Include, omeprazole 40 mg a day. ALLERGIES: PENICILLIN. FAMILY HISTORY: Pancreatic cancer, COPD and prostate cancer. SOCIAL HISTORY: She continues to smoke; I counseled her against this. She drinks alcohol. REVIEW OF SYSTEMS: 12 systems were reviewed and other than that mentioned in the HPI were unremarkable. PHYSICAL EXAM: Temperature is 98.6, blood pressure is 112/96, pulse is 76, respiratory rate of 16, O2 sat is 98%. General: Well-appearing female, in no apparent distress. Alert, oriented, pleasant, fluent. HEENT: Mucous membranes are moist without lesions, ulcerations, or exudate. Trachea is midline. Head is normocephalic, atraumatic. Heart: Regular rate and rhythm. Lungs: Clear to auscultation bilaterally. No wheezes, rales, or rhonchi. Abdomen: Positive bowel sounds. Skin is warm and dry. Neuro: No asterixis. Musculoskeletal: Normal gait. No CVA or spinal tenderness to palpation. DIAGNOSTIC STUDIES/LAB DATA: Of note, white count is 6.1. Hemoglobin is stable of 6.7. Platelets of 495. BUN is normal. ASSESSMENT AND PLAN: A pleasant 47-year-old female with iron deficiency anemia. She does need a workup; at this point she does need an EGD and a colonoscopy. She is requesting obtaining these back home; I am in an agreement with this. I think, it is safe for her to be discharged later on today and she can follow up with her channel lip wetter at home. [id number]/[facility] #: [id number] [facility]
--- NOTE | 2017-02-08 15:20 | DS ---
CC: Rosmery Veloz NP* DISCHARGE SUMMARY: DATE OF ADMISSION: 02/06/17 DATE OF DISCHARGE: 02/07/17 ATTENDING PHYSICIAN: Dr. Maria De Jesus Romo* (dictated by Estephania Campbell NP). PRIMARY CARE PROVIDER: MENDEZ Wilkinson. PRIMARY DIAGNOSES: 1. Chest pain, suspect noncardiac. 2. Iron-deficiency anemia, suspect secondary to menstrual blood loss. 3. Uterine fibroid. SECONDARY DIAGNOSIS: Gastroesophageal reflux disease. CONSULTATIONS WHILE IN THE HOSPITAL: Dr. Enmanuel Lama with Gastroenterology. STUDIES WHILE IN THE HOSPITAL: 1. Chest x-ray on 02/05/17. Radiologist's impression: No evidence of cardiopulmonary disease is noted. 2. Chest, abdomen, and pelvis CTA on 02/05/17. Radiologist's impression: No evidence of aortic dissection is noted. No definitive pulmonary embolus is noted. Enlarged uterus causing extrinsic compression of the urinary bladder likely due to myomatosis changes. 3. Pelvic ultrasound on 02/06/17. Radiologist's impression: Likely diffuse myomatosis changes of the uterus with the uterus measuring up to 17.6 x 8.9 x 19.4 cm. DISCHARGE MEDICATIONS: New home medications: 1. Vitamin B12 1000 mcg oral daily. 2. Ferrous sulfate 325 mg oral twice daily. Continued home medications: Omeprazole 40 mg oral daily. HISTORY OF PRESENT ILLNESS: Ms. Ramirez is a 47-year-old female with past medical history significant for GERD with esophageal scarring, who presented to the emergency room with complaints of sudden onset of nonexertional, nonradiating, sharp substernal chest pain that occurred while drinking liquid and feeling like she had swallowed wrong. The patient had no associated symptoms such as shortness of breath, palpitations, nausea, vomiting, diaphoresis, or lightheadedness. She did report exertional shortness of breath for the past 6 months and a syncopal episode while getting out of the shower approximately a month ago in addition to 2 weeks of progressive generalized fatigue. The patient presented to the emergency room for further evaluation of her symptoms. While in the emergency room, the patient was found to have severe iron- deficiency anemia. She also had a CTA showing no evidence of aortic dissection or pulmonary embolus but did show an enlarged uterus and hospitalists were asked to evaluate the patient for admission. While in the hospital, the patient continued to be anemic, although her hemoglobin and hematocrit improved after 2 units of blood. The patient was seen in consultation by GI who recommended that we obtain previous records on the patient and that she would likely need an outpatient EGD and colonoscopy. The patient continued to do well. She denied any associated symptoms such as dizziness, lightheadedness, and continued shortness of breath. The patient reports intermittently having a chest discomfort and is unable to pinpoint anything that causes the pain or improves the pain. The patient's troponins were unremarkable. Her shortness of breath and chest pain did improve after receiving 2 units of packed red blood cells. The patient continued to have severe anemia with hemoglobin of 6.7 and hematocrit of 23 today. She is anxious to go home; give her another unit of blood today and discharge her to home. Ms. Ramirez is stable for discharge to home today. Vital signs are as follows: Temperature 98.5, heart rate 85, respiratory rate 20, O2 sats 100% on room air, blood pressure 130/75. DISCHARGE PLAN: Ms. Ramirez will be discharged to home. ACTIVITY: As tolerated. DIET: Regular diet. For the patient's severe iron deficiency anemia and B12 deficiency, she has been started on ferrous sulfate 325 mg oral twice daily in addition to vitamin B12 1000 mcg oral daily. The patient should be seen in consultation by GI as an outpatient. She may need to have an EGD and colonoscopy. It is unclear according to the patient's primary care provider's note if she has actually followed up with GI since she was referred recently by her primary care provider. For the patient's chest pain, I suspect this is noncardiac in nature. If she continues to have discomfort, she should be considered for an outpatient stress test. As far as the patient's uterine fibroid, she needs to be seen in followup by [facility]. She has been encouraged to establish care with a [facility] near [place]. The patient may need to have a hysterectomy and may also be a candidate for uterine fibroid embolization, at which time she could be referred to an interventional radiologist for that procedure. The patient has been asked to return to the emergency room for any shortness of breath or chest pain. This is a summarized report of a complex medical history and hospital stay. For further details, please see the entire medical record. TIME SPENT: Time for this discharge was approximately 50 minutes, greater than half of that was spent with the patient discussing discharge plans and instructions. CONDITION ON DISCHARGE: Stable. ESTEPHANIA CAMPBELL, ENRIQUE [id number]/[facility] #: [id number] MTDD
== END 2017-02-07 19:30 | disposition home or self-care (01) | DRG 663 ==
LOC: ED 21:04 → MEDTELE 02-06 01:56
PROVIDERS: ADMIT Hospitalist; ATTEND Hospitalist
PROC: 30233N1 Transfusion of Nonautologous Red Blood Cells into Peripheral Vein, Percutaneous Approach (ICD-10-PCS; principal; 2017-02-06)
DX: D50.0 Iron deficiency anemia secondary to blood loss (chronic) (principal); E53.8 Deficiency of other specified B group vitamins; D25.9 Leiomyoma of uterus, unspecified; R07.89 Other chest pain; F12.90 Cannabis use, unspecified, uncomplicated; F17.210 Nicotine dependence, cigarettes, uncomplicated; K21.9 Gastro-esophageal reflux disease without esophagitis; Z88.0 Allergy status to penicillin; Z79.899 Other long term (current) drug therapy; Z82.5 Family history of asthma and other chronic lower respiratory diseases; Z80.0 Family history of malignant neoplasm of digestive organs; Z80.42 Family history of malignant neoplasm of prostate
CPT/HCPCS: 36415; 71020; 71275; 74174; 76856; 80053; 82607; 82728; 82746; 83540; 83550; 83605; 83615; 84484; 85014; 85018; 85025; 85027; 85045; 85060; 85379; 86850; 86900; 86901; 86922; 90686; 93005; 94760; A9270-GY; P9040; Q9967